=== PATIENT | female | born 1960 | race Caucasian/White ===

== ENCOUNTER → 2023-08-20 10:41 | Outpatient (BNVA) | payer MEDICARE, SELFPAY | PROVIDERS: Visit Provider Dermatology | DX: L73.8 Other specified follicular disorders (principal); L57.0 Actinic keratosis; L70.0 Acne vulgaris; D48.5 Neoplasm of uncertain behavior of skin | CPT/HCPCS: 11102; 99204 ==

== ENCOUNTER → 2023-09-16 10:36 | Outpatient (BNVA) | payer MEDICARE, SELFPAY | PROVIDERS: Visit Provider Dermatology | DX: C44.519 Basal cell carcinoma of skin of other part of trunk (principal) | CPT/HCPCS: 17262 ==

== ENCOUNTER → 2023-10-20 11:11 | Outpatient (BNVA) | payer MEDICARE, SELFPAY | PROVIDERS: Visit Provider Orthopaedic Surgery | DX: M54.9 Dorsalgia, unspecified (principal); M54.41 Lumbago with sciatica, right side; M54.42 Lumbago with sciatica, left side; G89.29 Other chronic pain | CPT/HCPCS: 72110; 99204 ==

== ENCOUNTER → 2023-11-18 10:55 | Outpatient (CLI) | payer MEDICARE, SELFPAY ==
--- NOTE | 2023-11-18 11:00 | MR_ITS ---
WS: [id number] MRI LUMBAR SPINE NONCONTRAST TECHNIQUE: Sagittal T1, T2 and STIR imaging. Axial T1 and T2 imaging. CLINICAL INFORMATION: back pain COMPARISON: None. FINDINGS: Only 4 nonrib-bearing lumbar vertebral bodies considered L1-L4 for the purposes of this dictation. Fi rst sacral segment is considered L5. Mild lumbar curve. No acute compression. No high-grade central canal stenosis. T12-L1: Mild disc bulging. Mild facet arthropathy. Spinal canal and foramen are patent. L1-L2: Mild facet arthropathy. Spinal canal and foramen are patent. L2-L3: Mild annular bulging. Mild facet arthropathy. Small bilateral foraminal protrusions with mild bilateral foraminal narrowing. L3-L4: Mild annular bulging. Mild facet arthropathy. Tiny RIGHT foraminal protrusion and mild RIGHT f oraminal narrowing. LEFT foramen is patent. L4-L5: Mild annular bulging with slight effacement of ventral thecal sac. Mild to moderate facet arth ropathy. Mild bilateral foraminal narrowing. L5-S1: First sacral segment considered L5. Spinal canal and foramen are patent at this level. Incidental Tarlov cyst in the sacrum. Visualized pelvic bony structures: Normal. Paravertebral soft tissues: Normal. MR/MR lumbar spine wo con* [id number] IMPRESSION: 1. Only 4 nonrib-bearing lumbar vertebral bodies considered L1-L4 for the pu rposes of this dictation. First sacral segment is considered L5. Recommend plai n film correlation prior to surgical intervention. 2. Small bilateral foraminal protrusions L2-3 with mild bilateral foraminal na rrowing. 3. Mild annular bulging L4-5 with slight effacement of the ventral thecal sac. 4. Small RIGHT foraminal protrusion L3-4 with mild RIGHT foraminal narrowing. 5. Mild bilateral L4-5 foraminal narrowing. 6. Moderate facet arthropathy L2-3 L3-L4 L4-L5.
== END | disposition home or self-care (01) ==
LOC: RAD 10:57
PROVIDERS: Visit Provider Orthopaedic Surgery
DX: M47.896 Other spondylosis, lumbar region (principal); G96.191 Perineural cyst
CPT/HCPCS: 72148

== ENCOUNTER → 2023-12-24 10:40 | Outpatient (BNVA) | payer MEDICARE, SELFPAY | PROVIDERS: Visit Provider Orthopaedic Surgery | DX: M54.50 Low back pain, unspecified (principal); G89.29 Other chronic pain | CPT/HCPCS: 99214 ==

== ENCOUNTER 2024-02-29 11:51 | Outpatient (CLI) | payer MEDICARE, SELFPAY ==
--- NOTE | 2024-02-29 11:58 | MM_ITS ---
WS: [id number] BILATERAL 3D TOMOSYNTHESIS DIGITAL SCREENING MAMMOGRAPHY WITH CAD CLINICAL INFORMATION: SCREENING HISTORY: Screening mammogram. No current complaints. COMPARISON: Outside study 2022 TECHNIQUE: Bilateral CC and MLO views. FINDINGS: Scattered fibroglandular densities bilaterally. No suspicious focal mass, asymmetry, calcifications, or architectural distortion. No evidence of malignancy. Coarse LEFT breast calcifications. Vascular c alcification. MM/MM scr tomosynthesis [id number] IMPRESSION: DENSITY: There are scattered areas of fibroglandular density. BI-RADS: 2 - Benign. FOLLOW UP: 1 Year Follow-up Recommend return to annual screening mammography.
== END 2024-02-29 11:52 | disposition home or self-care (01) ==
LOC: RAD 11:52
PROVIDERS: PCP Family Medicine
DX: Z12.31 Encounter for screening mammogram for malignant neoplasm of breast (principal); R92.323 Mammographic fibroglandular density, bilateral breasts; R92.1 Mammographic calcification found on diagnostic imaging of breast
CPT/HCPCS: 77063; 77067

== ENCOUNTER 2024-08-19 10:59 | Outpatient (CLI) | payer MEDICARE, SELFPAY ==
[2024-08-19 11:58] LABS: Basophils % 0.7 %; Eosinophils # 0.2 10^3/uL (0.0-0.8); Eosinophils % 4.5 %; Hematocrit 42.8 % (36-47); Lymphocytes # 1.2 10^3/uL (0.8-4.8); Lymphocytes % 27.4 %; Mean Corpuscular Hemoglobin 31.2 pg (27-33); Mean Corpuscular Volume 97.5 fl (85-98); Mean Platelet Volume 9.4 fL (7.4-10.4); Monocytes # 0.5 10^3/uL (0.2-0.9); Monocytes % 11.3 %; Neutrophils # 2.37 10^3/uL (1.8-7.7); Neutrophils % 55.9 %; Nucleated Red Blood Cells % 0 %; Platelet Count 260 10^3/cmm (157-399); Red Blood Count 4.39 10^6/uL (3.85-5.65); Red Cell Distribution Width 13.4 % (12.1-15.1); White Blood Count 4.24 10^3/uL (3.29-11.43)
[2024-08-19 12:28] LABS: Alanine Aminotransferase 22 U/L (0-33); Albumin Level 4.5 g/dL (3.5-5.2); Alkaline Phosphatase 71 U/L (35-105); Aspartate Amino Transferase 19 U/L (0-32); Blood Urea Nitrogen 18 mg/dL (8-23); Carbon Dioxide 28 mmol/L (22-29); Chloride 104 mmol/L (98-107); Chol HDL Ratio 2.13 mg/dL (0.0-4.40); Cholesterol 149 mg/dL (0-200); Globulin 2.6 g/dL (1.3-4.6); Glucose 99 mg/dL (65-115); HDL Cholesterol 70 mg/dL (60-100); LDL Cholesterol Calculated 66 mg/dL (50-129); LDL HDL Ratio 0.94 RATIO (0.00-3.22); Osmolality Calculated 292 mOsm/kg (285-295); Sodium 140 mmol/L (136-145); Total Bilirubin 0.4 mg/dL (0.15-1.2); Total Protein 7.1 g/dL (6.6-8.7); Triglycerides 65 mg/dL (0-150)
[2024-08-19 12:35] LABS: Hepatitis B Core IgM Non-Reactive (Nonreactive); Hepatitis B Surface AB < 3.5 (11.5-1000); Hepatitis B Surface Antigen Non-Reactive (Nonreactive)
== END 2024-08-19 11:00 | disposition home or self-care (01) ==
LOC: LAB 11:07
PROVIDERS: PCP Family Medicine; Visit Provider Family Medicine
DX: Z00.00 Encounter for general adult medical examination without abnormal findings (principal)
CPT/HCPCS: 36415; 80053; 80061; 85025; 86705; 86706; 87340